=== PATIENT | female | born 2000 | race Two or more races ===

== ENCOUNTER 2018-08-18 18:03 | Emergency (ER) | payer MEDICAID ==
--- NOTE | 2018-08-18 18:22 | EDPHY ---
H & P Smoking Status: Never smoked Time Seen by Provider: 08/18/18 18:21 HPI/ROS: CHIEF COMPLAINT: Medial right knee pain HISTORY OF PRESENT ILLNESS: Patient is a 18-year-old female states that 1 month ago she was running and bumped her knees together and developed significant right medial knee pain. This lasted approximately 1 week and self- resolved without any intervention. She was not evaluated at that time. Today she accidentally did the same thing where she bumped the medial aspect of the right knee and again she developed severe pain. She has full range of motion is able to bear weight on the knee. She has tried Tylenol for pain with mild relief of symptoms. She denies feeling of laxity. ROS As detailed in HPI (Ruddy Benavidez) Physical Exam: General: Alert and oriented. Nontoxic appearing. No acute distress HEENT: Pupils PERRLA. No oral lesions. Cardiopulmonary: Regular rate and rhythm. No lower extremity edema Skin: [place] warm and dry. No lesions. Muscle skeletal: Moving all 4 extremities. Equal strength in upper extremities and lower extremities. Ambulatory. Tenderness to the right medial joint line. No erythema or swelling. No joint effusion. Neurovascular intact distal to the right knee. (Ruddy Benavidez) Constitutional: Initial Vital Signs Temperature (C) 37.1 C 08/18/18 18:10 Heart Rate 76 08/18/18 18:10 Respiratory Rate 16 08/18/18 18:10 Blood Pressure 108/59 L 08/18/18 18:10 O2 Sat (%) 98 08/18/18 18:10 O2 Delivery Mode Room Air Allergies/Adverse Reactions: anesthsia Allergy (Uncoded 01/11/15 20:53) Home Medications: Medication Instructions Recorded Diclofenac Sodium 1% [Voltaren Gel 1 mary TP BID #1 tube 08/18/18 (*)] Medical Decision Making - Diagnostics Imaging Results: Imaging Impressions Knee X-Ray 08/18/18 18:17 Impression: Negative right knee radiographs. ED Course/Re-evaluation: History and physical are most consistent with contusion of the knee. X-ray reveals no acute bony process. She has no ligamentous instability on exam. We did discuss appropriate follow-up with the primary care physician for possible physical therapy and MRI if her symptoms are not improving. (Ruddy Benavidez) Differential Diagnosis: Fracture, dislocation, meniscus tear, the knee sprain (Ruddy Benavidez) Other Provider: PHYSICIAN DOCUMENTATION: The patient was evaluated and managed by the Physician Case Managers and myself. I have reviewed the chart and agree with the findings and plan of care as documented. In addition, I examined the patient myself at 1845. History confirmed as right knee injury 3 weeks ago in her left knee bumped into it, re- injured this morning. 3 weeks ago was quite bruised and swollen and discolored but that resolved, did re-injure today. Physical findings as follows: Joint is stable, Zeina's negative, medial tenderness along the joint line. No calf tenderness. I am the secondary supervising physician. (Kenton Neely) Departure - Departure Disposition: Home, Routine, Self-Care Clinical Impression: Contusion of right knee, initial encounter Condition: Good Instructions: Knee Pain (ED) Referrals: Oliva Mackey MD [Primary Care Provider] - As per Instructions Prescriptions: Diclofenac Sodium 1% [Voltaren Gel (*)] 1 mary TP BID #1 tube
[2018-08-18 19:21] VITALS: BP 100/54
== END 2018-08-18 19:30 | disposition home or self-care (01) ==
DX: M25.561 Pain in right knee (principal); S80.01XA Contusion of right knee, initial encounter